=== PATIENT | male | born 1950 | race Caucasian/White ===

== ENCOUNTER 2017-03-24 07:27 | Day surgery (SDC) | payer OTHER, MEDICARE ==
[2017-03-23 11:56] LABS: BASOPHILS % (AUTO) 0.8 % (0.0-2.0); EOSINOPHILS # (AUTO) 0.2 K/uL (0.0-0.4); EOSINOPHILS % (AUTO) 3.7 % (0.0-4.0); HEMATOCRIT 47.3 % (36-54); HEMOGLOBIN 15.5 g/dL (14.0-18.0); LYMPHOCYTES # (AUTO) 0.9 K/uL (1.0-5.5); MEAN CORPUSCULAR HEMOGLOBIN 33 pg (27-31); MEAN CORPUSCULAR HGB CONC 33 % (32-36); MEAN CORPUSCULAR VOLUME 99 fL (79.0-98.0); MONOCYTES # (AUTO) 0.8 K/uL (0.0-1.0); MONOCYTES % (AUTO) 12.9 % (1.7-9.3); NEUTROPHILS % (AUTO) 66.6 % (40.0-70.0); PLATELET COUNT (AUTO) 174 K/uL (130-430); RED BLOOD CELL COUNT(AUTO) 4.77 MIL/uL (4.2-6.2); RED CELL DISTRIBUTION WIDTH 13.6 % (9.0-15.0); WHITE BLOOD COUNT (AUTO) 5.9 K/uL (4.8-10.8)
[2017-03-23 11:59] LABS: CALCIUM 9.3 mg/dL (8.4-11.0); CREATININE 1.94 mg/dL (0.55-1.30); POTASSIUM 4.7 mmol/L (3.5-5.1)
[~2017-03-24] VITALS: Ht 172.7 cm; Wt 78.0 kg
[2017-03-24] MEDS ORDERED: NS IRRIG SOLN 1000 ML IR ONE (08:40)
[2017-03-24] MEDS ORDERED: LIDOCAINE/EPI 1% 1:100000 20 ML VIAL INJ ONE (08:40)
[2017-03-24] MEDS ORDERED: MEPERIDINE HCL/PF 100 MG/ML AMP IM ONE (08:40)
[2017-03-24] MEDS ORDERED: PROPOFOL 200MG/ 20ML VIAL (DIPRIVAN) IV ONE (08:40)
[2017-03-24] MEDS ORDERED: SEVOFLURANE 15 MIN GAS INH ONE (08:40)
[2017-03-24] MEDS ORDERED: LR 1,000 ML IV.SOLN IV ONE (08:40)
[2017-03-24] MEDS ORDERED: OXYMETAZOLINE HCL 0.05% NASAL SPRAY NS ONE (08:40)
[2017-03-24] MEDS ORDERED: EPINEPHrine 1 MG/ML AMP IVP ONE (08:40)
[2017-03-24] MEDS ORDERED: LIDOCAINE 1% 10 MG/ML, 20 ML MDV INJ ONE (08:40)
[2017-03-24] MEDS ORDERED: CIPROFLOXACIN LACTATE/D5W 400 MG/200 ML PIGGYBACK IV ONE (08:40)
[2017-03-24] MEDS ORDERED: DEXAMETHASONE SOD PHOSPHATE 4 MG/ML VIAL IVP ONE (08:40)
[2017-03-24] MEDS ORDERED: MUPIROCIN 2% TOPICAL OINTMENT 22 GM TP ONE (08:40)
[2017-03-24] MEDS ORDERED: MIDAZOLAM HCL 5 MG/5 ML VIAL IVP ONE (08:40)
[2017-03-24] MEDS ORDERED: SUCCINYLCHOLINE CHLORIDE 20 MG/ML(QUELICIN) IVP ONE (08:40)
[2017-03-24] MEDS ORDERED: fentaNYL CITRATE/PF 100 MCG/2 ML AMP IVP ONE (08:40)
[2017-03-24] MEDS ORDERED: NS 1000 ML BAG IV ONE (08:40)
[2017-03-24] MEDS ORDERED: MIDAZOLAM HCL 5 MG/5 ML VIAL IVP PRN (10:00)
[2017-03-24] MEDS ORDERED: LABETALOL 100 MG/ 20ML VIAL IVP PRN (10:00)
[2017-03-24] MEDS ORDERED: NALOXONE HCL 0.4 MG/ML AMP (NARCAN) IVP ONE (10:00)
[2017-03-24] MEDS ORDERED: HYDROmorphone 1 MG INJ. 1 MG/ML AMPUL IVP PRN (10:00)
[2017-03-24] MEDS ORDERED: fentaNYL CITRATE/PF 100 MCG/2 ML AMP IVP PRN (10:00)
[2017-03-24] MEDS ORDERED: MEPERIDINE HCL/PF 25 MG/ML DISP.SYRIN IVP PRN (10:00)
[2017-03-24] MEDS ORDERED: ONDANSETRON HCL 4 MG/2 ML VIAL IVP PRN (10:00)
[2017-03-24] MEDS: LABETALOL 100 MG/ 20ML VIAL ONE ×3 (11:36→12:10)
[2017-03-24] MEDS ORDERED: fentaNYL CITRATE/PF 100 MCG/2 ML AMP ONE (12:01)
[2017-03-24 14:33] VITALS: BP_SYST 155
== END 2017-03-24 14:15 | disposition home or self-care (01) ==
LOC: SMU 07:27 → SDS 07:27
PROVIDERS: ATTEND Otolaryngology
DX: J34.2 Deviated nasal septum (principal); J34.89 Other specified disorders of nose and nasal sinuses; M54.5 Low back pain
CPT/HCPCS: 30140; 30520; 31255; 31256; 31267; 31296; 31297; 36415; 71020; 80048; 85025; 87070 ×2; 87075; 87101; 88305; 88311; 93005; C1726; J0171; J0330; J0744; J1100; J2001; J2175; J2250; J2704; J3010; J3490; J7030; J7120